=== PATIENT | male | born 1940 | race African-American/Black ===

== ENCOUNTER 2017-07-13 10:57 | Emergency (ER) | payer OTHER ==
[2017-07-13 11:08] VITALS: BP 128/81; PULSE 64; TEMP 97.9; BMI 30.8
[2017-07-13] MEDS ORDERED: KETOROLAC TROMETHAMINE 60 MG/2 ML VIAL IM ONE (12:02)
[2017-07-13] MEDS ORDERED: KETOROLAC TROMETHAMINE 60 MG/2 ML VIAL ONE (12:03)
--- NOTE | 2017-07-13 12:10 | PDOC ---
History of Present Illness - General Chief Complaint: Pain Stated Complaint: PAIN IN LEGS CHRONIC Time Seen by Provider: 07/13/17 11:27 History Source: Patient Exam Limitations: No Limitations - History of Present Illness Initial Comments: 07/13/17 12:11 Patient came to emergency department with complaints of chronic knee pain. States is progressively worsened and Advil is not resolving. Has never been evaluated for this knee pain, DrSusan son, his PMD nose but has not recommended any treatment Occurred: reports: just prior to arrival Severity: reports: mild, moderate Pain Location: reports: lower extremity (bilateral knees, woirse on the left ) Method of Injury: Yes: unknown Associated Symptoms (Fall): denies symptoms Past History - Travel Traveled outside of the country in the last 30 days: No Close contact w/someone who was outside of country & ill: No - Past Medical History Allergies/Adverse Reactions: Allergies Allergy/AdvReac Type Severity Reaction Status Date / Time No Known Allergies Allergy Verified 07/13/17 11:08 Home Medications: Ambulatory Orders Atorvastatin Ca [Lipitor] 20 mg PO HS 06/27/16 Calcium Carbonate/Vitamin D3 [Oyster Shell Calcium + D Tab] 1 each PO DAILY Cetirizine HCl 10 mg PO DAILY 06/27/16 Docusate Sodium 100 mg PO BID PRN 06/27/16 Ferrous Sulfate 325 mg PO DAILY 06/27/16 Insulin Glargine,Hum.rec.anlog [Lantus Solostar PEN (NF)] 20 units SQ DAILY Losartan Potassium [Cozaar -] 25 mg PO DAILY 06/27/16 Sitagliptin Phosphate [Januvia] 50 mg PO DAILY 06/27/16 Tamsulosin HCl [Flomax] 0.4 mg PO DAILY #7 capsule 06/29/16 Naproxen [Naprosyn -] 500 mg PO BID #14 tablet 07/13/17 Anemia: No Asthma: No Cancer: No Cardiac Disorders: Yes CVA: No COPD: No CHF: No Dementia: No Diabetes: Yes GI Disorders: Yes (gi bleed) Disorders: No HTN: Yes Hypercholesterolemia: Yes Suicide Attempt (Hx): No Seizures: No Thyroid Disease: No - Surgical History Abdominal Surgery: No Appendectomy: No Cardiac Surgery: Yes (pacemaker) Cholecystectomy: No Lung Surgery: No Neurologic Surgery: No Orthopedic Surgery: No - Immunization History Immunization Up to Date: Yes - Psycho/Social/Smoking Cessation Hx Anxiety: No Suicidal Ideation: No Smoking Status: No Smoking History: Never smoked Have you smoked in the past 12 months: No Number of Cigarettes Smoked Daily: 0 If you are a former smoker, when did you quit?: 20 yrs ago Information on smoking cessation initiated: No Hx Alcohol Use: No Drug/Substance Use Hx: No Substance Use Type: None Hx Substance Use Treatment: No Review of Systems - Review of Systems Able to Perform ROS?: Yes Is the patient limited Greek proficient: Yes Constitutional: Yes: Symptoms Reported, See HPI. No: Fever, Malaise HEENTM: No: Symptoms Reported Musculoskeletal: Yes: Symptoms Reported, See HPI, Joint Pain, Joint Swelling Integumentary: No: Symptoms Reported All Other Systems: Reviewed and Negative *Physical Exam - Vital Signs Last Vital Signs Temp Pulse Resp BP Pulse Ox 97.9 F 64 18 128/81 98 07/13/17 11:06 07/13/17 11:06 07/13/17 11:06 07/13/17 11:06 07/13/17 11:06 - Physical Exam General Appearance: Yes: Nourished, Appropriately Dressed, Apparent Distress, Mild Distress Respiratory/Chest: positive: Lungs Clear Musculoskeletal: negative: Normal Inspection, Vertebral Tenderness Extremity: positive: Normal Inspection, Swelling. negative: Normal Range of Motion (limited to ~75% flexion and extension, walks stiffly. 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 *DC/Admit/Observation/Transfer Diagnosis at time of Disposition: Arthritis - Discharge Dispostion Disposition: HOME Condition at time of disposition: Stable Admit: No - Referrals Referrals: Jose Quijano [Primary Care Provider] - Aniceto Jung MD [Staff Physician] - - Patient Instructions Printed Discharge Instructions: DI for Arthritis Additional Instructions: Rest, ice to area on and off for 15 minutes 4-6 times a day Avoid heavy lifting or exercise until pain and swelling is resolved or until further directed Keep area highly elevated to reduce swelling Use splints/Orlin wrap as directed Followup with orthopedist in one to 2 days if not improving, if significantly improved may wait one week for followup with orthopedist May use ibuprofen 2-200 mg tablets every 6 hours as needed for pain
== END 2017-07-13 12:17 | disposition home or self-care (01) ==
LOC: JERFT 10:57
PROC: 3E0233Z Introduction of Anti-inflammatory into Muscle, Percutaneous Approach (ICD-10-PCS; principal; 2017-07-13)
DX: M17.9 Osteoarthritis of knee, unspecified (principal); G89.29 Other chronic pain; E78.00 Pure hypercholesterolemia, unspecified; I10 Essential (primary) hypertension; E11.9 Type 2 diabetes mellitus without complications; Z95.0 Presence of cardiac pacemaker; K92.2 Gastrointestinal hemorrhage, unspecified; Z79.4 Long term (current) use of insulin
CPT/HCPCS: 99281-25

== ENCOUNTER 2017-07-20 11:15 | Emergency (ER) | payer OTHER ==
[2017-07-20 11:29] VITALS: BP 170/86; PULSE 66; TEMP 98; BMI 31.2
[2017-07-20] MEDS ORDERED: ACETAMINOPHEN 325 MG TABLET (FP) PO ONE (12:56)
--- NOTE | 2017-07-20 13:12 | PDOC ---
History of Present Illness - General Chief Complaint: Pain Stated Complaint: UNABL TO WALK Time Seen by Provider: 07/20/17 11:53 History Source: Patient Exam Limitations: No Limitations - History of Present Illness Initial Comments: 07/20/17 13:21 77-year-old male presents to the emergency with complaints of right knee pain intermittently for the past week worsened with ambulation. Patient states was seen here last week and was given a prescription for Naprosyn which did alleviate the discomfort but only for to return hours after. Patient states also saw his PCP who recommended to continue the Naprosyn and was told he had arthritis. Patient states pain is a sharp intermittent pain worsened with standing causing him difficulty ambulating with his cane. Patient denies states pain radiated to the posterior aspect of right knee to the upper aspect of right calf. Patient has no compressive fever, chills, chest pain or shortness of breath. Patient denies recent injury to the affected area or previous surgery. Timing/Duration: intermittent Severity: mild, moderate Associated Symptoms: reports: denies symptoms Past History - Travel Traveled outside of the country in the last 30 days: No Close contact w/someone who was outside of country & ill: No - Past Medical History Allergies/Adverse Reactions: Allergies Allergy/AdvReac Type Severity Reaction Status Date / Time No Known Allergies Allergy Verified 07/13/17 11:08 Home Medications: Ambulatory Orders Atorvastatin Ca [Lipitor] 20 mg PO HS 06/27/16 Calcium Carbonate/Vitamin D3 [Oyster Shell Calcium + D Tab] 1 each PO DAILY Cetirizine HCl 10 mg PO DAILY 06/27/16 Docusate Sodium 100 mg PO BID PRN 06/27/16 Ferrous Sulfate 325 mg PO DAILY 06/27/16 Insulin Glargine,Hum.rec.anlog [Lantus Solostar PEN (NF)] 20 units SQ DAILY Losartan Potassium [Cozaar -] 25 mg PO DAILY 06/27/16 Sitagliptin Phosphate [Januvia] 50 mg PO DAILY 06/27/16 Tamsulosin HCl [Flomax] 0.4 mg PO DAILY #7 capsule 06/29/16 Naproxen [Naprosyn -] 500 mg PO BID #14 tablet 07/13/17 Ibuprofen [Motrin -] 400 mg PO TID PRN #21 tablet 07/20/17 Anemia: No Asthma: No Cancer: No Cardiac Disorders: Yes CVA: No COPD: No CHF: No Dementia: No Diabetes: Yes GI Disorders: Yes (gi bleed) Disorders: No HTN: Yes Hypercholesterolemia: Yes Suicide Attempt (Hx): No Seizures: No Thyroid Disease: No - Surgical History Abdominal Surgery: No Appendectomy: No Cardiac Surgery: Yes (pacemaker) Cholecystectomy: No Lung Surgery: No Neurologic Surgery: No Orthopedic Surgery: No - Immunization History Immunization Up to Date: Yes - Psycho/Social/Smoking Cessation Hx Anxiety: No Suicidal Ideation: No Smoking Status: No Smoking History: Former smoker Have you smoked in the past 12 months: No Number of Cigarettes Smoked Daily: 0 If you are a former smoker, when did you quit?: 20 yrs ago Information on smoking cessation initiated: No Hx Alcohol Use: No Drug/Substance Use Hx: No Substance Use Type: None Hx Substance Use Treatment: No Patient Lives Alone: Yes Lives with/in: lives alone Review of Systems - Review of Systems Able to Perform ROS?: Yes Constitutional: No: Symptoms Reported Respiratory: No: Symptoms reported Cardiac (ROS): No: Symptoms Reported Musculoskeletal: Yes: Joint Pain (right knee), Muscle Pain (right upper calf), Joint Stiffness (right knee). No: Joint Swelling, Muscle Weakness Integumentary: No: Symptoms Reported Neurological: No: Symptoms reported Endocrine: No: Symptoms Reported Hematologic/Lymphatic: No: Symptoms Reported *Physical Exam - Vital Signs Last Vital Signs Temp Pulse Resp BP Pulse Ox 98 F 66 18 170/86 96 07/20/17 11:25 07/20/17 11:25 07/20/17 11:25 07/20/17 11:25 07/20/17 11:25 - Physical Exam General Appearance: Yes: Nourished, Appropriately Dressed. No: Apparent Distress Cardiovascular: positive: Regular Rhythm, Regular Rate. negative: Murmur Gastrointestinal/Abdominal: positive: Soft. negative: Tenderness Extremity: positive: Normal Capillary Refill, Normal Inspection, Normal Range of Motion (with crepitus upon flexion/extension). negative: Pedal Edema, Swelling, Erythema Integumentary: positive: Normal Color, Warm, Moist Neurologic: positive: Normal Mood/Affect, Motor Strength 5/5 (ambulatory with limp) ED Treatment Course - RADIOLOGY Radiology Studies Ordered: Category Date Time Status KNEE 3 POS-RIGHT [RAD] Stat Radiology 07/20/17 12:57 Ordered DUPLEX VASCUL US-1 LEG [US] Stat Ultrasound 07/20/17 12:57 Ordered Medical Decision Making - Medical Decision Making 07/20/17 13:24 Patient with intermittent right knee pain worsened with ambulation. Patient was told by 2 practitioners that he had arthritis and to follow-up with orthopedic. Patient states field to follow up with orthopedist decided come to the ER when pain continued today causing him difficulty ambulating throughout his home. Patient denies worsening pain but states is not have any more Naprosyn for the pain also . patient on exam did have crepitus with no tenderness or limited range of motion on exam. Patient did complain of right posterior knee pain without palpable mass or positive Homans. Patient was ordered for knee x-ray along with ultrasound and Percocet for discomfort. 07/20/17 14:59 Duplex of the lower extremity was negative for DVT or other acute abnormalities. Patient's x-ray of the knee shows degenerative joint disease. Patient recommended to follow-up with Dr. jung as previously recommended. Have also discussed the plan with his sister who was present at his side. 07/20/17 15:00 Patient has a rolling walker being delivered later this week to his home as recommended by his PCP. *DC/Admit/Observation/Transfer Diagnosis at time of Disposition: Knee pain, right Qualifiers: Chronicity: acute Qualified Code(s): M25.561 - Pain in right knee - Discharge Dispostion Disposition: HOME Condition at time of disposition: Good - Prescriptions Prescriptions: Ibuprofen [Motrin -] 400 mg PO TID PRN #21 tablet PRN Reason: Pain - Referrals Referrals: Stephan Quijano [Primary Care Provider] - Aniceto Jung MD [Staff Physician] - - Patient Instructions Printed Discharge Instructions: DI for Arthritis Additional Instructions: Please apply heat to the affected area as this may alleviate some of ear discomfort. Take Motrin 400 mg every 8 hours for discomfort. Please use the walker as needed when it arrives to your home
[2017-07-20] MEDS ORDERED: ACETAMINOPHEN 325 MG TABLET (FP) ONE (13:15)
--- NOTE | 2017-07-20 14:41 | PDOC ---
*Physical Exam - Vital Signs Last Vital Signs Temp Pulse Resp BP Pulse Ox 98 F 66 18 170/86 96 07/20/17 11:25 07/20/17 11:25 07/20/17 11:25 07/20/17 11:25 07/20/17 11:25 ED Treatment Course - Medications Given in the ED: ED Medications Discontinued Medications Generic Name Dose Route Start Last Admin Trade Name Jarrod PRN Reason Stop Dose Admin Acetaminophen 650 mg 07/20/17 12:56 07/20/17 13:23 Tylenol - PO 07/20/17 12:57 650 mg ONCE ONE Administration Oxycodone/Acetaminophen 1 combo 07/20/17 12:56 07/20/17 13:22 Percocet 5/325 - PO 07/20/17 12:57 1 combo ONCE ONE Administration Medical Decision Making - Medical Decision Making 07/20/17 14:37 77y/o M acute on chronic knee pain, no other complaints r/o dvt recheck xray pain meds dispo accordingly *DC/Admit/Observation/Transfer Diagnosis at time of Disposition: Knee pain, right Qualifiers: Chronicity: acute Qualified Code(s): M25.561 - Pain in right knee - Discharge Dispostion Disposition: HOME Condition at time of disposition: Good - Prescriptions Prescriptions: Ibuprofen [Motrin -] 400 mg PO TID PRN #21 tablet PRN Reason: Pain - Referrals Referrals: Aniceto Jung MD [Staff Physician] - Stephan Quijano [Primary Care Provider] - - Patient Instructions Printed Discharge Instructions: DI for Arthritis Additional Instructions: Please apply heat to the affected area as this may alleviate some of ear discomfort. Take Motrin 400 mg every 8 hours for discomfort. Please use the walker as needed when it arrives to your home
== END 2017-07-20 15:40 | disposition home or self-care (01) ==
LOC: JER 11:15
DX: M25.561 Pain in right knee (principal); I10 Essential (primary) hypertension; E11.9 Type 2 diabetes mellitus without complications; E78.00 Pure hypercholesterolemia, unspecified; Z87.891 Personal history of nicotine dependence; Z95.0 Presence of cardiac pacemaker; Z79.4 Long term (current) use of insulin
CPT/HCPCS: 73562-TC-RT; 93971-TC; 99282-25

== ENCOUNTER 2018-04-30 17:02 | Emergency (ER) | payer OTHER ==
[2018-04-30 17:17] VITALS: BP 155/72; PULSE 68; TEMP 98.2; BMI 28.1
--- NOTE | 2018-04-30 17:51 | PDOC ---
History of Present Illness - General Chief Complaint: Urinary Problem Stated Complaint: URINARY PROBLEM - History of Present Illness Initial Comments: 78 year-old male with PMH of HTN, HLD, NIDDM, GI bleed, prostate CA (status post seeds), urosepsis, sick sinus syndrome (status post pacemaker) presenting to the ED with urinary retention for the past days. He states that he is been dribbling since yesterday despite the urge to urinate and does not feel that he is completely emptying his bladder. Denies fevers, chills, nausea, vomiting, diarrhea, constipation, back pain, numbness, tingling, paresthesias, other sick symptoms. He was seen in the emergency a few times for similar symptoms and once was discharged with a leg bag and urology follow up. PMD: Dr. Sheehan Urology: Dr. Quijano 04/30/18 17:42 Past History - Past Medical History Allergies/Adverse Reactions: Allergies Allergy/AdvReac Type Severity Reaction Status Date / Time No Known Allergies Allergy Verified 04/30/18 17:08 Home Medications: Ambulatory Orders Atorvastatin Ca [Lipitor] 20 mg PO HS 06/27/16 Calcium Carbonate/Vitamin D3 [Oyster Shell Calcium + D Tab] 1 each PO DAILY Cetirizine HCl 10 mg PO DAILY 06/27/16 Docusate Sodium 100 mg PO BID PRN 06/27/16 Ferrous Sulfate 325 mg PO DAILY 06/27/16 Insulin Glargine,Hum.rec.anlog [Lantus Solostar PEN (NF)] 20 units SQ DAILY Losartan Potassium [Cozaar -] 25 mg PO DAILY 06/27/16 Sitagliptin Phosphate [Januvia] 50 mg PO DAILY 06/27/16 Tamsulosin HCl [Flomax] 0.4 mg PO DAILY #7 capsule 06/29/16 Naproxen [Naprosyn -] 500 mg PO BID #14 tablet 07/13/17 Ibuprofen [Motrin -] 400 mg PO TID PRN #21 tablet 07/20/17 Anemia: No Asthma: No Cancer: No Cardiac Disorders: Yes CVA: No COPD: No CHF: No Dementia: No Diabetes: Yes GI Disorders: Yes (gi bleed) Disorders: No HTN: Yes Hypercholesterolemia: Yes Seizures: No Thyroid Disease: No Other medical history: enlarged prostate - Surgical History Abdominal Surgery: No Appendectomy: No Cardiac Surgery: Yes (pacemaker) Cholecystectomy: No Lung Surgery: No Neurologic Surgery: No Orthopedic Surgery: No - Immunization History Immunization Up to Date: Yes - Suicide/Smoking/Psychosocial Hx Smoking Status: No Smoking History: Former smoker Have you smoked in the past 12 months: No Number of Cigarettes Smoked Daily: 0 If you are a former smoker, when did you quit?: 20 yrs ago Information on smoking cessation initiated: No Hx Alcohol Use: No Drug/Substance Use Hx: No Substance Use Type: None Hx Substance Use Treatment: No Review of Systems - Review of Systems Constitutional: No: Chills, Diaphoresis, Fever HEENTM: No: Blurred Vision, Tearing Respiratory: No: Cough, Orthopnea, Shortness of Breath Cardiac (ROS): No: Chest Pain, Irregular Heart Rate ABD/GI: No: Constipated, Diarrhea, Nausea, Vomiting : No: Burning, Dysuria, Discharge, Hematuria, Incontinence Musculoskeletal: No: Back Pain, Gout, Joint Pain Integumentary: No: Bruising, Erythema, Flushing, Lesions Neurological: No: Headache, Numbness, Paresthesia Hematologic/Lymphatic: No: Anemia, Blood Clots, Easy Bleeding *Physical Exam - Vital Signs Last Vital Signs Temp Pulse Resp BP Pulse Ox 98.2 F 68 18 155/72 68 L 04/30/18 17:08 04/30/18 17:08 04/30/18 17:08 04/30/18 17:08 04/30/18 17:08 - Physical Exam General Appearance: Yes: Nourished, Appropriately Dressed. No: Apparent Distress HEENT: positive: EOMI, CUATE, Normal ENT Inspection, Normal Voice Neck: positive: Trachea midline, Normal Thyroid, Supple. negative: Tender, Rigid Respiratory/Chest: positive: Lungs Clear, Normal Breath Sounds. negative: Chest Tender, Respiratory Distress, Accessory Muscle Use Cardiovascular: positive: Regular Rhythm, Regular Rate Gastrointestinal/Abdominal: positive: Normal Bowel Sounds, Flat, Soft. negative : Tender Male Genitalia: positive: normal genitalia. negative: discharge, hematuria Lymphatic: negative: Adenopathy, Tenderness Musculoskeletal: positive: Normal Inspection. negative: CVA Tenderness Extremity: positive: Normal Capillary Refill, Normal Inspection, Normal Range of Motion. negative: Tender Integumentary: positive: Normal Color, Dry, Warm Neurologic: positive: Fully Oriented, Alert, Normal Mood/Affect, Normal Response , Motor Strength 03/12 ED Treatment Course - LABORATORY CBC & Chemistry Diagram: 04/30/18 18:55 04/30/18 18:55 Medical Decision Making - Medical Decision Making 78 year old male with previous history of retention presenting with suspicion of retention as patient states that he has a sensation of incomplete urination. Upon presentation patient stated that he urinated 3 hours prior and he had 200mL in his bladder by bedside US. Given 2L NS and patient made approximately 1L after a few hours with 400 in the bladder. Overall, the patient appear to be retaining urine but is not obstructed as he has made 1 L of urine while here. Will discharge home with follow up with urologist. 04/30/18 23:06 *DC/Admit/Observation/Transfer Diagnosis at time of Disposition: Urinary retention - Discharge Dispostion Disposition: HOME Condition at time of disposition: Improved Decision to Admit order: No - Referrals Referrals: Derick Cruz MD [Staff Physician] - - Patient Instructions Printed Discharge Instructions: DI for Urinary Retention in Men Additional Instructions: Please follow up with the urologist on the sheet on Wednesday. Please return to the ED if you stop urinating all together or if you have new or worsening symptoms. - Post Discharge Activity
--- NOTE | 2018-04-30 18:33 | PDOC ---
Attending Attestation - HPI HPI: 04/30/18 20:39 The patient is a 78 year old male with HTN, HLD and NIDDM presents to the emergency department complaining of difficulty urinating. The patient reports associated concern of urinary frequency with the inability to void. <Jaclyn Dover - Last Filed: 04/30/18 20:39> - Resident Resident Name: Landen Mcpherson - ED Attending Attestation I have performed the following: I have examined & evaluated the patient, The case was reviewed & discussed with the resident, I agree w/resident's findings & plan, Exceptions are as noted - Physicial Exam PE: 04/30/18 21:44 Patient is awake and alert, obese, in no distress Normocephalic, atraumatic Conjunctiva are pink mm-dry cta rrr Soft, nondistended, nontender, no CVA tenderness bilaterally - Medical Decision Making 04/30/18 21:44 78-year-old male presents with urinary urgency and difficult urinating for the past several days. In the ER, patient is asymptomatic with bedside ultrasound revealing postvoid residual volume of 200 mL. BUN/creatinine is also mildly elevated compared to baseline. Patient has received 1900 mL of normal saline was able to void 300 mL of clear urine. Abdominal exam reveals no focal tenderness, no distended bladder is appreciated this time. Will obtain UA for analysis. Will reassess. Likely discharge. 04/30/18 22:48 Patient spontaneously voided additional 150 mL of urine. We'll administer by mouth challenge and will discharge. <Gui Lambert - Last Filed: 04/30/18 22:48>
[2018-04-30] MEDS ORDERED: SODIUM CHLORIDE 0.9% 500 ML INFUS.BAG IV ONE (18:43)
[2018-04-30 19:06] LABS: BASO % 0.7 % (0-2.0); EOS % 0.7 % (0-4.5); HEMATOCRIT 44.3 % (35.4-49); HEMOGLOBIN 14.8 GM/dL (11.7-16.9); LYMPH % 22.9 % (8-40); MCH 32.1 pg (25.7-33.7); MCHC 33.3 g/dl (32.0-35.9); MEAN CELL VOLUME 96.4 fl (80-96); MEAN PLT VOLUME 7.7 fl (7.5-11.1); MONO % 10.3 % (3.8-10.2); NEUT % 65.4 % (42.8-82.8); PLATELET COUNT 275 K/MM3 (134-434); RDW 14.5 % (11.9-15.9); WHITE BLOOD COUNT 7.9 K/mm3 (4.0-10.0)
[2018-04-30 19:51] LABS: ANION GAP 9 (8-16); BILIRUBIN,TOTAL 0.5 mg/dL (0.2-1.0); BLOOD UREA NITROGEN 27 mg/dL (7-18); CALCIUM 9.3 mg/dL (8.5-10.1); CHLORIDE 102 mmol/L (98-107); CO2 26 mmol/L (21-32); CREATININE 1.4 mg/dL (0.7-1.3); GLUCOSE,RANDOM 141 mg/dL (74-106); POTASSIUM 4.4 mmol/L (3.5-5.1); SGOT/AST 14 U/L (15-37); SGPT/ALT 24 U/L (12-78); SODIUM 137 mmol/L (136-145); TOT PROT 8.3 g/dl (6.4-8.2)
[2018-04-30 19:52] LABS: ALK PHOS 93 U/L (45-117)
[2018-04-30 21:55] LABS: URINE APPEARANCE CLEAR; URINE BILIRUBIN NEGATIVE (<2.0 mg/dL); URINE COLOR LTYELLOW; URINE GLUCOSE (UA) NEGATIVE (NEGATIVE); URINE KETONE NEGATIVE (NEGATIVE); URINE LEUK ESTERASE NEGATIVE (NEGATIVE); URINE NITRITE NEGATIVE (NEGATIVE); URINE PROTEIN NEGATIVE (NEGATIVE); URINE UROBILINOGEN NEGATIVE mg/dL (0.2-1.0)
== END 2018-05-01 | disposition home or self-care (01) ==
LOC: JER 17:02
DX: R33.8 Other retention of urine (principal); Z85.46 Personal history of malignant neoplasm of prostate; I10 Essential (primary) hypertension; E78.00 Pure hypercholesterolemia, unspecified; E11.9 Type 2 diabetes mellitus without complications; Z79.4 Long term (current) use of insulin; Z79.84 Long term (current) use of oral hypoglycemic drugs; I97.89 Other postprocedural complications and disorders of the circulatory system, not elsewhere classified; I49.5 Sick sinus syndrome; Z95.0 Presence of cardiac pacemaker; Z87.891 Personal history of nicotine dependence; Z87.19 Personal history of other diseases of the digestive system
CPT/HCPCS: 36415; 80053; 81003; 85025; 99282-25

== ENCOUNTER 2021-10-25 13:24 | Emergency (ER) | payer OTHER ==
[2021-10-25] MEDS ORDERED: ACETAMINOPHEN 1000 MG/100 ML BAG IVPB ONE (13:58)
[2021-10-25 14:00] VITALS: BMI 28.5
[2021-10-25] MEDS ORDERED: ACETAMINOPHEN INJECTION 100 ML IVPB ONE (14:22)
[2021-10-25 14:34] LABS: BASO % 0.8 % (0-2.0); EOS % 0.8 % (0-4.5); HEMATOCRIT 39.4 % (35.4-49); HEMOGLOBIN 13.2 GM/dL (11.7-16.9); LYMPH % 21.3 % (8-40); MCH 32.2 pg (25.7-33.7); MCHC 33.6 g/dl (32.0-35.9); MEAN PLT VOLUME 8.2 fl (7.5-11.1); NEUT % 67.1 % (42.8-82.8); PLATELET COUNT 345 10^3/uL (134-434); RDW 16.3 % (11.9-15.9); WHITE BLOOD COUNT 7.9 K/mm3 (4.0-10.0)
[2021-10-25 14:39] LABS: INR 1.57 (0.83-1.09); PROTHROMBIN TIME (PATIENT) 18.5 SEC (9.7-13.0)
[2021-10-25 15:02] LABS: BLOOD UREA NITROGEN 27.8 mg/dL (7-18); CALCIUM 9.8 mg/dL (8.5-10.1)
[2021-10-25 15:03] LABS: ALBUMIN 3.1 g/dl (3.4-5.0); MAGNESIUM 2.4 mg/dL (1.8-2.4)
[2021-10-25 15:06] LABS: CREATININE 1.5 mg/dL (0.55-1.3)
[2021-10-25 15:07] LABS: BILIRUBIN,TOTAL 0.8 mg/dL (0.2-1); TOT PROT 6.7 g/dl (6.4-8.2)
[2021-10-25] MEDS ORDERED: SODIUM CHLORIDE 0.9% 500 ML INFUS.BAG IV ONE (15:46)
[2021-10-26] MEDS ORDERED: IBUPROFEN 600 MG TABLET (FP) PO ONE ×2 (00:44→00:45)
[2021-10-26 00:45] VITALS: BP 125/76; PULSE 72; TEMP 97.6
== END 2021-10-26 00:58 | disposition home or self-care (01) ==
LOC: JER 13:24
PROC: 3E033GC Introduction of Other Therapeutic Substance into Peripheral Vein, Percutaneous Approach (ICD-10-PCS; principal; 2021-10-25)
DX: M25.511 Pain in right shoulder (principal); M25.551 Pain in right hip; M25.552 Pain in left hip; M25.561 Pain in right knee; M25.562 Pain in left knee; W19.XXXA Unspecified fall, initial encounter
CPT/HCPCS: 36415; 70450-TC; 71045-TC-FY; 72125-TC; 73030-TC-RT-FY; 73523-TC-FY; 73562-TC-LT-FY; 73562-TC-RT-FY; 80053; 82550; 83735; 84484; 85025; 85610; 85730; 86850; 86900; 86901; 93005; 93010; 96374; 99285-25; C9803; J0131; U0003; U0005

== ENCOUNTER 2023-02-18 20:07 | Inpatient (IN) | payer OTHER ==
[2023-02-18] MEDS ORDERED: SODIUM CHLORIDE 0.9% 500 ML INFUS.BAG IV ONE (21:08)
[2023-02-18 22:30] LABS: BASO % 0.7 % (0-2.0); EOS % 0.7 % (0-4.5); HEMATOCRIT 36.4 % (35.4-49); HEMOGLOBIN 11.8 GM/dL (11.7-16.9); LYMPH % 21.4 % (8-40); MCH 29.2 pg (25.7-33.7); MCHC 32.4 g/dl (32.0-35.9); MEAN CELL VOLUME 90.2 fl (80-96); MEAN PLT VOLUME 7.7 fl (7.5-11.1); NEUT % 67.2 % (42.8-82.8); PLATELET COUNT 368 10^3/uL (134-434); RBC 4.04 M/mm3 (4.00-5.60); RDW 16.5 % (11.9-15.9); WHITE BLOOD COUNT 8.2 K/mm3 (4.0-10.0)
[2023-02-18 22:53] LABS: BLOOD UREA NITROGEN 27.2 mg/dL (7-18); CALCIUM 9.5 mg/dL (8.5-10.1); MAGNESIUM 1.9 mg/dL (1.8-2.4)
[2023-02-18 22:55] LABS: PHOSPHOROUS 2.6 mg/dL (2.5-4.9)
[2023-02-18 22:57] LABS: BILIRUBIN,TOTAL 0.7 mg/dL (0.2-1); TOT PROT 6.7 g/dl (6.4-8.2)
[2023-02-18] MEDS ORDERED: AZITHROMYCIN IVPB 500 MG in DEXTROSE 5%-WATER - 250 ML IVPB ONE (23:40)
[2023-02-18] MEDS ORDERED: CEFTRIAXONE 1,000 MG in DEXTROSE 5%-WATER - 50 ML IVPB ONE (23:40)
[2023-02-19 00:24] LABS: EPI CELLS 0 /uL (0-25.1); HYALINE CASTS 0 /uL (0-3.1); PH,URINE 5.5 (5.0-8.0); URINE APPEARANCE CLOUDY; URINE BACTERIA 5140 /uL (0-1359); URINE BILIRUBIN NEGATIVE (NEGATIVE); URINE COLOR YELLOW; URINE GLUCOSE (UA) NEGATIVE (NEGATIVE); URINE KETONE NEGATIVE (NEGATIVE); URINE LEUK ESTERASE 3+ (NEGATIVE); URINE NITRITE NEGATIVE (NEGATIVE); URINE PROTEIN TRACE (NEGATIVE); URINE RBC 13 /uL (0-23.9); URINE UROBILINOGEN 0.2 mg/dL (0.2-1.0); URINE WBC 460 /uL (0-25.8)
[2023-02-19] MEDS ORDERED: CEFTRIAXONE 1 GM/50 ML BAG ONE (00:40)
[2023-02-19] MEDS ORDERED: AZITHROMYCIN IVPB 500 MG/250 ML BAG IVPB ONE (00:40)
[2023-02-19] MEDS ORDERED: DEXTROSE 5%-0.45% SALINE 1,000 ML IV SCH (04:15)
[2023-02-19 11:10] LABS: BASO % 0.9 % (0-2.0); EOS % 1.7 % (0-4.5); HEMATOCRIT 34.9 % (35.4-49); HEMOGLOBIN 11.2 GM/dL (11.7-16.9); LYMPH % 23.5 % (8-40); MCH 29.1 pg (25.7-33.7); MCHC 31.9 g/dl (32.0-35.9); MEAN PLT VOLUME 7.9 fl (7.5-11.1); MONO % 8.5 % (3.8-10.2); NEUT % 65.4 % (42.8-82.8); PLATELET COUNT 348 10^3/uL (134-434); RBC 3.84 M/mm3 (4.00-5.60); RDW 16.7 % (11.9-15.9); WHITE BLOOD COUNT 7.2 K/mm3 (4.0-10.0)
[2023-02-19 11:21] LABS: BLOOD UREA NITROGEN 23.4 mg/dL (7-18); CALCIUM 9.3 mg/dL (8.5-10.1)
[2023-02-19 11:25] LABS: CREATININE 1.5 mg/dL (0.55-1.3)
[2023-02-19] MEDS ORDERED: POTASSIUM CHLORIDE ORAL LIQUID 20 MEQ/15 ML PO ONE ×2 (13:47→16:15)
[2023-02-20 08:38] LABS: HEMATOCRIT 36.7 % (35.4-49); HEMOGLOBIN 12.3 GM/dL (11.7-16.9); MCH 30.3 pg (25.7-33.7); MCHC 33.6 g/dl (32.0-35.9); MEAN CELL VOLUME 90.1 fl (80-96); MEAN PLT VOLUME 7.9 fl (7.5-11.1); PLATELET COUNT 353 10^3/uL (134-434); RBC 4.07 M/mm3 (4.00-5.60); RDW 16.5 % (11.9-15.9)
[2023-02-20 08:59] LABS: BLOOD UREA NITROGEN 17.2 mg/dL (7-18); CALCIUM 9.5 mg/dL (8.5-10.1)
[2023-02-20 09:03] LABS: CREATININE 1.1 mg/dL (0.55-1.3)
[2023-02-20] MEDS: CEFTRIAXONE 1 GM in DEXTROSE 5%-WATER - 50 ML IVPB SCH (09:15)
[2023-02-20] MEDS: AZITHROMYCIN IVPB 500 MG/250 ML BAG IVPB SCH (09:18)
[2023-02-20] MEDS ORDERED: DOCUSATE SODIUM 100 MG CAPSULE (FP) PO PRN ×2 (15:33→15:39)
[2023-02-20] MEDS: TAMSULOSIN HCL 0.4 MG CAP PO SCH (16:07)
[2023-02-20] MEDS: DONEPEZIL HCL 5 MG TABLET (FP) PO SCH (16:07)
[2023-02-20] MEDS: INSULIN SLIDING SCALE (NOVOLOG) 1 VIAL SQ SCH ×2 (16:23→22:54)
[2023-02-20] MEDS ORDERED: PATIENT'S OWN MEDICATION (NON-FORMULARY) (Hydralazine Hcl [Hydralazine Hcl] 100 MG Tablet) PO SCH (22:00)
[2023-02-20] MEDS: APIXABAN 5 MG TABLET PO SCH (22:46)
[2023-02-20] MEDS: MEMANTINE HCL 5 MG TABLET (UD) PO SCH (22:46)
[2023-02-20] MEDS: hydrALAZINE HCL 50 MG TABLET (FP) PO SCH (22:46)
[2023-02-21] MEDS: hydrALAZINE HCL 50 MG TABLET (FP) PO SCH ×3 (06:25→21:21)
[2023-02-21] MEDS: INSULIN (LEVEMIR) 100 UNITS/ML UNITS SQ SCH (06:29)
[2023-02-21] MEDS: INSULIN SLIDING SCALE (NOVOLOG) 1 VIAL SQ SCH ×4 (07:52→21:20)
[2023-02-21] MEDS: DONEPEZIL HCL 5 MG TABLET (FP) PO SCH (09:53)
[2023-02-21] MEDS: TAMSULOSIN HCL 0.4 MG CAP PO SCH (09:53)
[2023-02-21] MEDS: APIXABAN 5 MG TABLET PO SCH ×2 (09:53→21:21)
[2023-02-21] MEDS: amLODIPine BESYLATE 10 MG TABLET (FP) PO SCH (09:53)
[2023-02-21] MEDS: LOSARTAN POTASSIUM 50 MG TABLET PO SCH (09:53)
[2023-02-21] MEDS: MEMANTINE HCL 5 MG TABLET (UD) PO SCH ×2 (09:53→21:21)
[2023-02-21] MEDS: HYDROCHLOROTHIAZIDE 25 MG TABLET (FP) PO SCH (09:53)
[2023-02-21] MEDS: AZITHROMYCIN IVPB 500 MG/250 ML BAG IVPB SCH (09:54)
[2023-02-21] MEDS: CEFTRIAXONE 1 GM in DEXTROSE 5%-WATER - 50 ML IVPB SCH (09:54)
[2023-02-21] MEDS ORDERED: LOSARTAN POTASSIUM 25 MG TABLET PO SCH (10:00)
[2023-02-22] MEDS: INSULIN SLIDING SCALE (NOVOLOG) 1 VIAL SQ SCH ×4 (06:22→21:44)
[2023-02-22] MEDS: hydrALAZINE HCL 50 MG TABLET (FP) PO SCH ×3 (06:23→21:38)
[2023-02-22] MEDS: INSULIN (LEVEMIR) 100 UNITS/ML UNITS SQ SCH (06:24)
[2023-02-22] MEDS: TAMSULOSIN HCL 0.4 MG CAP PO SCH (09:23)
[2023-02-22] MEDS: amLODIPine BESYLATE 10 MG TABLET (FP) PO SCH (09:23)
[2023-02-22] MEDS: APIXABAN 5 MG TABLET PO SCH ×2 (09:23→21:38)
[2023-02-22] MEDS: LOSARTAN POTASSIUM 50 MG TABLET PO SCH (09:23)
[2023-02-22] MEDS: DONEPEZIL HCL 5 MG TABLET (FP) PO SCH (09:23)
[2023-02-22] MEDS: CEFTRIAXONE 1 GM in DEXTROSE 5%-WATER - 50 ML IVPB SCH (09:24)
[2023-02-22] MEDS: MEMANTINE HCL 5 MG TABLET (UD) PO SCH ×2 (09:24→21:38)
[2023-02-22] MEDS: HYDROCHLOROTHIAZIDE 25 MG TABLET (FP) PO SCH (09:24)
[2023-02-22] MEDS: DOXYCYCLINE INJECTION 100 MG in DEXTROSE 5%-WATER 100 ML IVPB SCH ×4 (10:18→21:37)
[2023-02-22 19:59] VITALS: BMI 25.5
[2023-02-23 02:44] VITALS: RESP 18
[2023-02-23] MEDS: hydrALAZINE HCL 50 MG TABLET (FP) PO SCH ×3 (05:42→22:11)
[2023-02-23] MEDS: INSULIN SLIDING SCALE (NOVOLOG) 1 VIAL SQ SCH ×4 (06:26→22:13)
[2023-02-23] MEDS: INSULIN (LEVEMIR) 100 UNITS/ML UNITS SQ SCH (06:28)
[2023-02-23] MEDS ORDERED: DOXYCYCLINE HYCLATE 100 MG VIAL ONE (09:12)
[2023-02-23] MEDS ORDERED: cefTRIAXone SODIUM 1 GM VIAL ONE (09:13)
[2023-02-23] MEDS: HYDROCHLOROTHIAZIDE 25 MG TABLET (FP) PO SCH (09:16)
[2023-02-23] MEDS: LOSARTAN POTASSIUM 50 MG TABLET PO SCH (09:16)
[2023-02-23] MEDS: amLODIPine BESYLATE 10 MG TABLET (FP) PO SCH (09:17)
[2023-02-23] MEDS: APIXABAN 5 MG TABLET PO SCH ×2 (09:17→22:12)
[2023-02-23] MEDS: MEMANTINE HCL 5 MG TABLET (UD) PO SCH ×2 (09:17→22:11)
[2023-02-23] MEDS: DONEPEZIL HCL 5 MG TABLET (FP) PO SCH (09:17)
[2023-02-23] MEDS: TAMSULOSIN HCL 0.4 MG CAP PO SCH (09:17)
[2023-02-23] MEDS: CEFTRIAXONE 1 GM in DEXTROSE 5%-WATER - 50 ML IVPB SCH (09:21)
[2023-02-23] MEDS: DOXYCYCLINE INJECTION 100 MG in DEXTROSE 5%-WATER 100 ML IVPB SCH ×2 (09:57→22:15)
[2023-02-23 10:39] LABS: HEMATOCRIT 34.2 % (35.4-49); HEMOGLOBIN 11.4 GM/dL (11.7-16.9); MCH 30.2 pg (25.7-33.7); MCHC 33.4 g/dl (32.0-35.9); MEAN CELL VOLUME 90.3 fl (80-96); MEAN PLT VOLUME 8.4 fl (7.5-11.1); PLATELET COUNT 393 10^3/uL (134-434); RBC 3.79 M/mm3 (4.00-5.60); WHITE BLOOD COUNT 8.1 K/mm3 (4.0-10.0)
[2023-02-23 11:07] LABS: CALCIUM 9.2 mg/dL (8.5-10.1)
[2023-02-23 11:08] LABS: BLOOD UREA NITROGEN 17.5 mg/dL (7-18)
[2023-02-23 11:11] LABS: CREATININE 1.3 mg/dL (0.55-1.3)
[2023-02-24] MEDS: INSULIN SLIDING SCALE (NOVOLOG) 1 VIAL SQ SCH ×3 (06:28→16:51)
[2023-02-24] MEDS: INSULIN (LEVEMIR) 100 UNITS/ML UNITS SQ SCH (06:29)
[2023-02-24] MEDS: hydrALAZINE HCL 50 MG TABLET (FP) PO SCH ×2 (06:31→13:21)
[2023-02-24] MEDS: TAMSULOSIN HCL 0.4 MG CAP PO SCH (10:27)
[2023-02-24] MEDS: DONEPEZIL HCL 5 MG TABLET (FP) PO SCH (10:27)
[2023-02-24] MEDS: APIXABAN 5 MG TABLET PO SCH (10:27)
[2023-02-24] MEDS: HYDROCHLOROTHIAZIDE 25 MG TABLET (FP) PO SCH (10:28)
[2023-02-24] MEDS: amLODIPine BESYLATE 10 MG TABLET (FP) PO SCH (10:28)
[2023-02-24] MEDS: MEMANTINE HCL 5 MG TABLET (UD) PO SCH (10:28)
[2023-02-24] MEDS: LOSARTAN POTASSIUM 50 MG TABLET PO SCH (10:29)
[2023-02-24] MEDS: CEFTRIAXONE 1 GM in DEXTROSE 5%-WATER - 50 ML IVPB SCH (10:30)
[2023-02-24] MEDS: DOXYCYCLINE INJECTION 100 MG in DEXTROSE 5%-WATER 100 ML IVPB SCH (11:11)
[2023-02-24 20:06] VITALS: BP 132/70; PULSE 82; TEMP 98.3
== END 2023-02-24 20:25 | DRG 194 ==
LOC: JER 20:07 → JERBED 22:45 → J6S 02-19 05:57
PROVIDERS: ADMIT Family Medicine; ATTEND Family Medicine
DX: J18.9 Pneumonia, unspecified organism (principal); N17.9 Acute kidney failure, unspecified; N39.0 Urinary tract infection, site not specified; F03.90 Unspecified dementia, unspecified severity, without behavioral disturbance, psychotic disturbance, mood disturbance, and anxiety; E78.5 Hyperlipidemia, unspecified; I48.91 Unspecified atrial fibrillation; Z79.01 Long term (current) use of anticoagulants; Z79.4 Long term (current) use of insulin; R13.10 Dysphagia, unspecified; E87.6 Hypokalemia; I12.9 Hypertensive chronic kidney disease with stage 1 through stage 4 chronic kidney disease, or unspecified chronic kidney disease; E11.22 Type 2 diabetes mellitus with diabetic chronic kidney disease; N18.9 Chronic kidney disease, unspecified
CPT/HCPCS: 0241U-QW; 36415; 71045-TC-FY; 74230-TC-FY; 80048; 80053; 81003; 82962; 83735; 84100; 85025; 85027; 87040; 87086; 87186; 87899; 92611-GN; 93005; 93010; 97116-GP; 97161-GP; 99285-25

== ENCOUNTER 2023-07-31 11:53 | Inpatient (IN) | payer OTHER ==
[2023-07-31 12:13] VITALS: BMI 28.7
[2023-07-31 12:49] LABS: BASO % 1.2 % (0-2.0); EOS % 0.3 % (0-4.5); HEMOGLOBIN 13.9 GM/dL (11.7-16.9); LYMPH % 26.1 % (8-40); MCH 30.3 pg (25.7-33.7); MCHC 32.4 g/dl (32.0-35.9); MEAN CELL VOLUME 93.5 fl (80-96); MEAN PLT VOLUME 8.2 fl (7.5-11.1); MONO % 16.8 % (3.8-10.2); NEUT % 55.6 % (42.8-82.8); PLATELET COUNT 306 10^3/uL (134-434); RDW 16.1 % (11.9-15.9)
[2023-07-31 13:07] LABS: POTASSIUM 4.7 mmol/L (3.5-5.1)
[2023-07-31 13:09] LABS: CALCIUM 9.2 mg/dL (8.5-10.1)
[2023-07-31 13:10] LABS: ALBUMIN 3.2 g/dl (3.4-5.0); BLOOD UREA NITROGEN 21.8 mg/dL (7-18)
[2023-07-31 13:13] LABS: CREATININE 1.4 mg/dL (0.55-1.3)
[2023-07-31 13:15] LABS: BILIRUBIN,TOTAL 0.5 mg/dL (0.2-1); TOT PROT 7.4 g/dl (6.4-8.2)
[2023-07-31 13:55] LABS: ACTIVATED PTT 28.4 SECONDS (25.2-36.5); INR 1.05 (0.83-1.09); PROTHROMBIN TIME (PATIENT) 12.2 SEC (9.7-13.0)
[2023-07-31 15:24] LABS: INR 1.09 (0.83-1.09); PROTHROMBIN TIME (PATIENT) 12.6 SEC (9.7-13.0)
[2023-07-31 16:05] LABS: EPI CELLS 1 /uL (0-25.1); HYALINE CASTS 0 /uL (0-3.1); URINE APPEARANCE TURBID; URINE BACTERIA 7401 /uL (0-1359); URINE BILIRUBIN NEGATIVE (NEGATIVE); URINE COLOR YELLOW; URINE GLUCOSE (UA) NEGATIVE (NEGATIVE); URINE KETONE NEGATIVE (NEGATIVE); URINE LEUK ESTERASE 3+ (NEGATIVE); URINE NITRITE NEGATIVE (NEGATIVE); URINE PROTEIN 2+ (NEGATIVE); URINE RBC 41 /uL (0-23.9); URINE WBC 3410 /uL (0-25.8)
[2023-07-31] MEDS ORDERED: CEFTRIAXONE 1 GM/50 ML BAG ONE (17:09)
[2023-07-31] MEDS: MEMANTINE HCL 10 MG TABLET (FP) PO SCH (22:00)
[2023-08-01 08:00] LABS: HEMATOCRIT 41.3 % (35.4-49); HEMOGLOBIN 13.1 GM/dL (11.7-16.9); MCH 29.7 pg (25.7-33.7); MCHC 31.7 g/dl (32.0-35.9); MEAN CELL VOLUME 93.4 fl (80-96); PLATELET COUNT 272 10^3/uL (134-434); RBC 4.42 M/mm3 (4.00-5.60); RDW 16.1 % (11.9-15.9); WHITE BLOOD COUNT 7.1 K/mm3 (4.0-10.0)
[2023-08-01 08:01] LABS: BASO % 0.7 % (0-2.0); LYMPH % 26.4 % (8-40); MEAN PLT VOLUME 8.3 fl (7.5-11.1); MONO % 14.9 % (3.8-10.2)
[2023-08-01 08:20] LABS: POTASSIUM 4.1 mmol/L (3.5-5.1)
[2023-08-01 08:24] LABS: ALBUMIN 2.8 g/dl (3.4-5.0); CALCIUM 8.8 mg/dL (8.5-10.1)
[2023-08-01 08:27] LABS: CREATININE 1.3 mg/dL (0.55-1.3)
[2023-08-01 08:28] LABS: BILIRUBIN,TOTAL 0.4 mg/dL (0.2-1); TOT PROT 6.5 g/dl (6.4-8.2)
[2023-08-01] MEDS: MEMANTINE HCL 10 MG TABLET (FP) PO SCH ×2 (11:04→22:11)
[2023-08-01] MEDS: amLODIPine BESYLATE 10 MG TABLET (FP) PO SCH (11:04)
[2023-08-01] MEDS: CEFTRIAXONE 1 GM in DEXTROSE 5%-WATER - 50 ML IVPB SCH (11:04)
[2023-08-01] MEDS: TAMSULOSIN HCL 0.4 MG CAP PO SCH (11:04)
[2023-08-01] MEDS ORDERED: SODIUM CHLORIDE 0.45% 1,000 ML IV SCH (12:45)
[2023-08-01] MEDS ORDERED: REMDESIVIR 200 MG in SODIUM CHLORIDE 250 ML IVPB ONE (18:00)
[2023-08-01] MEDS: DONEPEZIL HCL 5 MG TABLET (FP) PO SCH (22:11)
[2023-08-02 09:08] LABS: POTASSIUM 4.2 mmol/L (3.5-5.1)
[2023-08-02 09:13] LABS: ALBUMIN 2.5 g/dl (3.4-5.0); BLOOD UREA NITROGEN 38.5 mg/dL (7-18); CALCIUM 8.5 mg/dL (8.5-10.1)
[2023-08-02 09:16] LABS: CREATININE 1.3 mg/dL (0.55-1.3)
[2023-08-02 09:18] LABS: BILIRUBIN,TOTAL 0.3 mg/dL (0.2-1); TOT PROT 6.1 g/dl (6.4-8.2)
[2023-08-02] MEDS: MEMANTINE HCL 10 MG TABLET (FP) PO SCH ×2 (09:21→21:57)
[2023-08-02] MEDS: TAMSULOSIN HCL 0.4 MG CAP PO SCH (09:21)
[2023-08-02] MEDS: CEFTRIAXONE 1 GM in DEXTROSE 5%-WATER - 50 ML IVPB SCH (09:22)
[2023-08-02] MEDS: amLODIPine BESYLATE 10 MG TABLET (FP) PO SCH (09:22)
[2023-08-02] MEDS: REMDESIVIR 100 MG in SODIUM CHLORIDE 250 ML IVPB SCH (17:02)
[2023-08-02] MEDS: DONEPEZIL HCL 5 MG TABLET (FP) PO SCH (21:57)
[2023-08-03] MEDS: MEMANTINE HCL 10 MG TABLET (FP) PO SCH ×2 (11:18→21:01)
[2023-08-03] MEDS: CEFTRIAXONE 1 GM in DEXTROSE 5%-WATER - 50 ML IVPB SCH (11:18)
[2023-08-03] MEDS: amLODIPine BESYLATE 10 MG TABLET (FP) PO SCH (11:19)
[2023-08-03] MEDS: TAMSULOSIN HCL 0.4 MG CAP PO SCH (11:19)
[2023-08-03] MEDS: REMDESIVIR 100 MG in SODIUM CHLORIDE 250 ML IVPB SCH (17:01)
[2023-08-03] MEDS: DONEPEZIL HCL 5 MG TABLET (FP) PO SCH (21:00)
[2023-08-04] MEDS: TAMSULOSIN HCL 0.4 MG CAP PO SCH (08:14)
[2023-08-04] MEDS: CEFTRIAXONE 1 GM in DEXTROSE 5%-WATER - 50 ML IVPB SCH (09:17)
[2023-08-04] MEDS: amLODIPine BESYLATE 10 MG TABLET (FP) PO SCH (09:18)
[2023-08-04] MEDS: MEMANTINE HCL 10 MG TABLET (FP) PO SCH ×2 (09:18→21:19)
[2023-08-04] MEDS: REMDESIVIR 100 MG in SODIUM CHLORIDE 250 ML IVPB SCH (17:35)
[2023-08-04] MEDS: DONEPEZIL HCL 5 MG TABLET (FP) PO SCH (21:19)
[2023-08-05] MEDS: TAMSULOSIN HCL 0.4 MG CAP PO SCH (08:06)
[2023-08-05 09:34] LABS: POTASSIUM 4.3 mmol/L (3.5-5.1)
[2023-08-05 09:40] LABS: ALBUMIN 2.6 g/dl (3.4-5.0); CALCIUM 8.6 mg/dL (8.5-10.1)
[2023-08-05 09:43] LABS: BILIRUBIN,TOTAL 0.3 mg/dL (0.2-1); CREATININE 0.9 mg/dL (0.55-1.3); TOT PROT 6.2 g/dl (6.4-8.2)
[2023-08-05] MEDS: CEFTRIAXONE 1 GM in DEXTROSE 5%-WATER - 50 ML IVPB SCH (10:33)
[2023-08-05] MEDS: LOSARTAN POTASSIUM 50 MG TABLET PO SCH (10:34)
[2023-08-05] MEDS: amLODIPine BESYLATE 10 MG TABLET (FP) PO SCH (10:34)
[2023-08-05] MEDS: MEMANTINE HCL 10 MG TABLET (FP) PO SCH ×2 (10:34→22:34)
[2023-08-05] MEDS: APIXABAN 5 MG TABLET PO SCH ×2 (10:34→22:34)
[2023-08-05] MEDS: REMDESIVIR 100 MG in SODIUM CHLORIDE 250 ML IVPB SCH (17:58)
[2023-08-05] MEDS: DONEPEZIL HCL 5 MG TABLET (FP) PO SCH (22:33)
[2023-08-05] MEDS: INSULIN (LEVEMIR) 100 UNITS/ML UNITS SQ SCH (22:50)
[2023-08-06] MEDS: APIXABAN 5 MG TABLET PO SCH ×2 (11:32→22:20)
[2023-08-06] MEDS: TAMSULOSIN HCL 0.4 MG CAP PO SCH (11:32)
[2023-08-06] MEDS: MEMANTINE HCL 10 MG TABLET (FP) PO SCH ×2 (11:32→22:20)
[2023-08-06] MEDS: LOSARTAN POTASSIUM 50 MG TABLET PO SCH (11:33)
[2023-08-06] MEDS: amLODIPine BESYLATE 10 MG TABLET (FP) PO SCH (11:33)
[2023-08-06] MEDS: INSULIN (LEVEMIR) 100 UNITS/ML UNITS SQ SCH (22:21)
[2023-08-06] MEDS: DONEPEZIL HCL 5 MG TABLET (FP) PO SCH (22:21)
[2023-08-07] MEDS: TAMSULOSIN HCL 0.4 MG CAP PO SCH (08:11)
[2023-08-07 08:23] VITALS: BP 140/70; PULSE 73; RESP 18; TEMP 98.1
[2023-08-07] MEDS: amLODIPine BESYLATE 10 MG TABLET (FP) PO SCH (10:35)
[2023-08-07] MEDS: LOSARTAN POTASSIUM 50 MG TABLET PO SCH (10:36)
[2023-08-07] MEDS: APIXABAN 5 MG TABLET PO SCH (10:36)
[2023-08-07] MEDS: MEMANTINE HCL 10 MG TABLET (FP) PO SCH (10:36)
== END 2023-08-07 11:50 | disposition home or self-care (01) | DRG 177 ==
LOC: JER 11:53 → JERBED 15:23 → J4W 08-01 01:37 → OBSVTOIN 08-02 15:45
PROVIDERS: ADMIT Family Medicine; ATTEND Family Medicine
PROC: XW033E5 Introduction of Remdesivir Anti-infective into Peripheral Vein, Percutaneous Approach, New Technology Group 5 (ICD-10-PCS; principal; 2023-08-01)
DX: U07.1 COVID-19 (principal); G92.8 Other toxic encephalopathy; I24.8 Other forms of acute ischemic heart disease; N17.9 Acute kidney failure, unspecified; N39.0 Urinary tract infection, site not specified; I25.10 Atherosclerotic heart disease of native coronary artery without angina pectoris; E78.5 Hyperlipidemia, unspecified; F03.90 Unspecified dementia, unspecified severity, without behavioral disturbance, psychotic disturbance, mood disturbance, and anxiety; Z95.0 Presence of cardiac pacemaker; E11.22 Type 2 diabetes mellitus with diabetic chronic kidney disease; Z79.4 Long term (current) use of insulin; N40.0 Benign prostatic hyperplasia without lower urinary tract symptoms; I12.9 Hypertensive chronic kidney disease with stage 1 through stage 4 chronic kidney disease, or unspecified chronic kidney disease; N18.9 Chronic kidney disease, unspecified; I49.5 Sick sinus syndrome; I48.0 Paroxysmal atrial fibrillation
CPT/HCPCS: 0241U-QW; 36415; 70450-TC; 71045-TC-FY; 80053; 81003; 82550; 82962; 83735; 84443; 84484; 85025; 85610; 85730; 86140; 87040; 87086; 87186; 93005; 93010; 94010; 94761; 97116-GP; 97161-GP; 99285-25; C9399; G0378

== ENCOUNTER 2024-03-17 18:15 | Inpatient (IN) | payer OTHER ==
[2024-03-17] MEDS ORDERED: ACETAMINOPHEN INJECTION 100 ML IVPB ONE (19:49)
[2024-03-17] MEDS: ACETAMINOPHEN 1000 MG/100 ML BAG IVPB ONE (20:14)
[2024-03-17 20:16] LABS: BASO % 0.5 % (0-2.0); EOS % 2.3 % (0-4.5); HEMATOCRIT 34.3 % (35.4-49); HEMOGLOBIN 11.1 GM/dL (11.7-16.9); LYMPH % 12.1 % (8-40); MCH 30.8 pg (25.7-33.7); MCHC 32.3 g/dl (32.0-35.9); MEAN CELL VOLUME 95.2 fl (80-96); MEAN PLT VOLUME 7.9 fl (7.5-11.1); MONO % 8.6 % (3.8-10.2); NEUT % 76.5 % (42.8-82.8); PLATELET COUNT 382 10^3/uL (134-434); RBC 3.61 M/mm3 (4.00-5.60); RDW 15.9 % (11.9-15.9)
[2024-03-17 20:25] LABS: POTASSIUM 4.7 mmol/L (3.5-5.1)
[2024-03-17 20:26] LABS: BLOOD UREA NITROGEN 15.8 mg/dL (7-18); CALCIUM 8.3 mg/dL (8.5-10.1)
[2024-03-17 20:31] LABS: BILIRUBIN,TOTAL 0.6 mg/dL (0.2-1)
[2024-03-17] MEDS: SODIUM CHLORIDE 0.9% 500 ML INFUS.BAG IV ONE (22:06)
[2024-03-18 00:55] LABS: EPI CELLS 5 /uL (0-25.1); HYALINE CASTS 1 /uL (0-3.1); URINE APPEARANCE TURBID; URINE BACTERIA 8502 /uL (0-1359); URINE BILIRUBIN NEGATIVE (NEGATIVE); URINE COLOR YELLOW; URINE GLUCOSE (UA) NEGATIVE (NEGATIVE); URINE KETONE TRACE (NEGATIVE); URINE LEUK ESTERASE 2+ (NEGATIVE); URINE NITRITE POSITIVE (NEGATIVE); URINE PROTEIN 2+ (NEGATIVE); URINE RBC 1978 /uL (0-23.9); URINE WBC 1215 /uL (0-25.8)
[2024-03-18] MEDS: CEFTRIAXONE 1 GM in DEXTROSE 5%-WATER - 50 ML IVPB SCH (02:33)
[2024-03-18] MEDS: INSULIN ASPART SLIDING SCALE (NOVOLOG) 1 VIAL SQ SCH (06:09)
[2024-03-18 08:28] LABS: BASO % 0.5 % (0-2.0); EOS % 2.4 % (0-4.5); HEMATOCRIT 34.5 % (35.4-49); LYMPH % 13.5 % (8-40); MCH 30.4 pg (25.7-33.7); MEAN CELL VOLUME 95.2 fl (80-96); MEAN PLT VOLUME 7.7 fl (7.5-11.1); MONO % 9.6 % (3.8-10.2); PLATELET COUNT 345 10^3/uL (134-434); RBC 3.62 M/mm3 (4.00-5.60); RDW 15.3 % (11.9-15.9); WHITE BLOOD COUNT 8.9 K/mm3 (4.0-10.0)
[2024-03-18] MEDS: TAMSULOSIN HCL 0.4 MG CAP PO SCH (09:09)
[2024-03-18] MEDS: amLODIPine BESYLATE 10 MG TABLET (FP) PO SCH (09:43)
[2024-03-18] MEDS: LOSARTAN POTASSIUM 50 MG TABLET PO SCH (09:43)
[2024-03-18] MEDS: APIXABAN 5 MG TABLET PO SCH (09:43)
[2024-03-18] MEDS ORDERED: INSULIN (NOVOLOG) ASPART 100 UNITS/ML 10ML VIAL ONE (21:05)
[2024-03-18] MEDS: DONEPEZIL HCL 10 MG TABLET (FP) PO SCH (21:27)
[2024-03-19 08:13] LABS: BASO % 0.5 % (0-2.0); EOS % 1.9 % (0-4.5); HEMOGLOBIN 10.6 GM/dL (11.7-16.9); LYMPH % 12.4 % (8-40); MCH 30.4 pg (25.7-33.7); MCHC 32.1 g/dl (32.0-35.9); MEAN CELL VOLUME 94.6 fl (80-96); MONO % 6.2 % (3.8-10.2); PLATELET COUNT 355 10^3/uL (134-434); RBC 3.49 M/mm3 (4.00-5.60); RDW 15.2 % (11.9-15.9); WHITE BLOOD COUNT 9.2 K/mm3 (4.0-10.0)
[2024-03-19 08:29] LABS: POTASSIUM 3.9 mmol/L (3.5-5.1)
[2024-03-19 08:38] LABS: BLOOD UREA NITROGEN 10.3 mg/dL (7-18); CALCIUM 7.9 mg/dL (8.5-10.1)
[2024-03-19 08:40] LABS: ALBUMIN 1.8 g/dl (3.4-5.0)
[2024-03-19 08:41] LABS: CREATININE 0.6 mg/dL (0.55-1.3)
[2024-03-19 08:44] LABS: BILIRUBIN,TOTAL 0.8 mg/dL (0.2-1); TOT PROT 5.5 g/dl (6.4-8.2)
[2024-03-19 08:59] LABS: ERYTHROCYTE SEDIMENTATION RATE 70 mm/hr (0-20)
[2024-03-19] MEDS ORDERED: INSULIN (NOVOLOG) ASPART 100 UNITS/ML 10ML VIAL ONE (11:46)
[2024-03-19 14:33] VITALS: BMI 24.2
[2024-03-19] MEDS: INSULIN (LEVEMIR) 100 UNITS/ML UNITS SQ SCH (22:02)
[2024-03-20] MEDS: TAMSULOSIN HCL 0.4 MG CAP PO ONE (01:02)
[2024-03-20 07:50] LABS: BASO % 0.3 % (0-2.0); EOS % 2.1 % (0-4.5); HEMATOCRIT 34.3 % (35.4-49); HEMOGLOBIN 11.2 GM/dL (11.7-16.9); LYMPH % 14.2 % (8-40); MCH 30.9 pg (25.7-33.7); MCHC 32.8 g/dl (32.0-35.9); MEAN CELL VOLUME 94.2 fl (80-96); MEAN PLT VOLUME 7.6 fl (7.5-11.1); MONO % 6.5 % (3.8-10.2); NEUT % 76.9 % (42.8-82.8); PLATELET COUNT 379 10^3/uL (134-434); RBC 3.63 M/mm3 (4.00-5.60); RDW 15.2 % (11.9-15.9); WHITE BLOOD COUNT 8.4 K/mm3 (4.0-10.0)
[2024-03-20 08:10] LABS: POTASSIUM 3.7 mmol/L (3.5-5.1)
[2024-03-20 08:14] LABS: CALCIUM 8.7 mg/dL (8.5-10.1)
[2024-03-20 08:15] LABS: ALBUMIN 2.1 g/dl (3.4-5.0); BLOOD UREA NITROGEN 8.1 mg/dL (7-18)
[2024-03-20 08:18] LABS: CREATININE 0.8 mg/dL (0.55-1.3)
[2024-03-20 08:19] LABS: BILIRUBIN,TOTAL 0.3 mg/dL (0.2-1); TOT PROT 5.8 g/dl (6.4-8.2)
[2024-03-20] MEDS: MEROPENEM 1 GM in DEXTROSE 5%-WATER 100 ML IVPB SCH ×2 (12:21→20:38)
[2024-03-20] MEDS ORDERED: INSULIN (NOVOLOG) ASPART 100 UNITS/ML 10ML VIAL ONE (21:07)
[2024-03-20] MEDS ORDERED: MEROPENEM 1 GM in DEXTROSE 5%-WATER 100 ML IVPB SCH (22:00)
[2024-03-21] MEDS: MEROPENEM 1 GM in DEXTROSE 5%-WATER 100 ML IVPB SCH (07:36)
[2024-03-21 13:44] VITALS: RESP 18
[2024-03-22] MEDS: ACETAMINOPHEN 325 MG TABLET (FP) PO PRN (08:43)
[2024-03-22] MEDS: DOCUSATE SODIUM 100 MG CAPSULE (FP) PO PRN (08:43)
[2024-03-22] MEDS ORDERED: INSULIN (NOVOLOG) ASPART 100 UNITS/ML 10ML VIAL ONE (21:19)
[2024-03-23 08:37] LABS: BASO % 0.6 % (0-2.0); EOS % 2.3 % (0-4.5); HEMATOCRIT 32.2 % (35.4-49); HEMOGLOBIN 10.7 GM/dL (11.7-16.9); MCH 31.2 pg (25.7-33.7); MCHC 33.2 g/dl (32.0-35.9); MEAN CELL VOLUME 94.1 fl (80-96); MEAN PLT VOLUME 7.5 fl (7.5-11.1); MONO % 8.9 % (3.8-10.2); NEUT % 68.2 % (42.8-82.8); PLATELET COUNT 411 10^3/uL (134-434); RBC 3.42 M/mm3 (4.00-5.60); RDW 15.5 % (11.9-15.9)
[2024-03-23 08:59] LABS: POTASSIUM 4.5 mmol/L (3.5-5.1)
[2024-03-23 09:03] LABS: BLOOD UREA NITROGEN 12.5 mg/dL (7-18)
[2024-03-23 09:04] LABS: CALCIUM 8.7 mg/dL (8.5-10.1)
[2024-03-23 09:07] LABS: CREATININE 0.8 mg/dL (0.55-1.3)
[2024-03-23 09:08] LABS: BILIRUBIN,TOTAL 0.3 mg/dL (0.2-1); TOT PROT 5.7 g/dl (6.4-8.2)
[2024-03-23 09:42] VITALS: BP 139/80; PULSE 70; TEMP 97.7
== END 2024-03-23 12:38 | DRG 593 ==
LOC: JER 18:15 → JERBED 22:57 → J8W 03-18 01:33
PROVIDERS: ADMIT Internal Medicine; ATTEND Internal Medicine
PROC: 05HY33Z Insertion of Infusion Device into Upper Vein, Percutaneous Approach (ICD-10-PCS; principal; 2024-03-22)
DX: L89.152 Pressure ulcer of sacral region, stage 2 (principal); N39.0 Urinary tract infection, site not specified; M54.9 Dorsalgia, unspecified; F03.90 Unspecified dementia, unspecified severity, without behavioral disturbance, psychotic disturbance, mood disturbance, and anxiety; I10 Essential (primary) hypertension; I25.10 Atherosclerotic heart disease of native coronary artery without angina pectoris; E78.5 Hyperlipidemia, unspecified; Z95.0 Presence of cardiac pacemaker; E11.9 Type 2 diabetes mellitus without complications; N40.1 Benign prostatic hyperplasia with lower urinary tract symptoms; B96.89 Other specified bacterial agents as the cause of diseases classified elsewhere
CPT/HCPCS: 36415; 36569; 72170-TC-FY; 80053; 81003; 82962; 83735; 85025; 85027; 85651; 86140; 87086; 87186; 87635; 97116-GP; 97161-GP; 99285-25; J0131